=== PATIENT | male | born 1990 | race Caucasian/White ===

== ENCOUNTER 2020-02-18 09:58 | Outpatient (CLI) | payer OTHER, SELFPAY ==
--- NOTE | ~2020-02-18 | MR_ITS ---
EXAMINATION: MR brain/brain stem wo con DATE: 02/18/2020 11:04 INDICATION: Epilepsy, unspecified, not intractable, without status epilepticus. TECHNIQUE: Magnetic resonance imaging (MRI) of the brain and brainstem was performed without intraven ous contrast. Sequences included sagittal and axial T1-weighted FSE, axial diffusion-weighted FS EPI, axial T2*-weighted GRE, axial T2-weighted FLAIR Propeller, axial T2-weighted Propeller, coronal T2-w eighted FLAIR, and coronal T1-weighted 3D FSPGR. Apparent diffusion coefficient (ADC) maps were creat ed. COMPARISON: None. FINDINGS: The hippocampi are normal and symmetric. There is no intracranial hemorrhage, acute infarct ion, or abnormal intracranial mass lesion. The ventricles are normal in size. The paranasal sinuses a re clear. The orbits are normal. The mastoid air cells are normal. IMPRESSION: 1. Normal brain. Reviewed, dictated and finalized at location A. IMPRESSION: 1. Normal brain.
[2020-02-18 11:56] LABS: Basophils Percent Auto 0.2 % (0.2-1.2); Eosinophils Absolute Auto 0.1 K/mm3 (0-0.3); Eosinophils Percent Auto 0.9 % (0-4.4); Hematocrit 43.8 % (42.0-52.0); Hemoglobin 14.5 g/dL (14.0-18.0); Immature Granulocyte Absolute 0.03 K/mm3 (0.00-0.031); Immature Granulocyte Percent A 0.3 % (0-0.5); Lymphocytes Absolute Auto 2.21 K/mm3 (0.9-3.2); Lymphocytes Percent Auto 25.2 % (18.3-44.2); Mean Corpuscular HGB Conc 33.1 g/dl (32-36); Mean Corpuscular Hemoglobin 28.3 pg (26-34); Mean Corpuscular Volume 85.5 fl (80-100); Mean Platelet Volume 8.7 fl (7.4-10.4); Monocytes Absolute Auto 0.8 K/mm3 (0.1-0.6); Monocytes Percent Auto 9.4 % (2.6-8.5); Neutrophils Absolute Auto 5.6 K/mm3 (1.3-6.7); Platelet Count Result 335 k/mm3 (150-375); Red Blood Count 5.12 M/mm3 (4.6-6.20); Red Cell Distribution Width 13.4 % (11.5-14.5); White Blood Count 8.8 K/mm3 (4.5-10.0)
[2020-02-18 12:16] LABS: Alanine Aminotransferase 38 U/L (4-50); Albumin Level 4.5 g/dL (3.5-5.1); Alkaline Phosphatase 104 U/L (38-126); Aspartate Amino Transferase 34 U/L (17-59); Bilirubin,Total 0.3 mg/dL (0.2-1.3); Blood Urea Nitrogen 11 mg/dL (9-20); Calcium 9.4 mg/dL (8.4-10.2); Carbon Dioxide 29 mmol/L (22-30); Chloride 101 mmol/L (98-107); Estimated Glomerular Filt Rate > 60; Glucose 98 mg/dL (75-110); Potassium 4.7 mmol/L (3.4-5.0); Sodium 138 mmol/L (137-145)
== END 2020-02-18 09:59 | disposition home or self-care (01) ==
PROVIDERS: PCP Family Medicine; Visit Provider Family Medicine
DX: G40.909 Epilepsy, unspecified, not intractable, without status epilepticus (principal)
CPT/HCPCS: 36415; 70551; 80053; 84443; 85025

== ENCOUNTER 2020-03-19 13:43 | Outpatient (CLI) | payer OTHER, SELFPAY | END 2020-03-19 13:44 | disposition home or self-care (01) | PROVIDERS: PCP Family Medicine; Visit Provider Surgery | DX: K43.0 Incisional hernia with obstruction, without gangrene (principal); Z01.812 Encounter for preprocedural laboratory examination | CPT/HCPCS: 36415; 86850; 86900; 86901 ==

== ENCOUNTER 2020-03-20 00:14 | Outpatient (CLI) | payer OTHER, SELFPAY ==
[2020-03-20 17:48] LABS: SARS-CoV-2 RNA PCR Negative
== END 2020-03-20 00:15 | disposition home or self-care (01) ==
LOC: ANHCOVIDDT 00:14
PROVIDERS: PCP Family Medicine; Visit Provider Surgery
DX: Z01.812 Encounter for preprocedural laboratory examination (principal); Z20.828 Contact with and (suspected) exposure to other viral communicable diseases
CPT/HCPCS: 87635; C9803; U0003

== ENCOUNTER 2020-03-23 11:45 | Inpatient (IN) | payer OTHER, SELFPAY ==
[2020-03-10 11:56] VITALS: BMI 35.9
--- NOTE | 2020-03-20 13:49 | WPDANESEPPF ---
Anes - Initial Pre Proc Eval Procedure: Operation Date: 03/23/20 07:30 Proposed Procedures p Open Retrorectus Incisional Hernia Repair With Mesh, Bilateral Component Separation - John Zuniga DO Date/Time: 03/20/20 13:49 Surgeon: John Zuniga DO Pre Op Diagnosis: Incarcerated Incisional Hernia Patient Data Age: 29 Gender: M Height: 5 ft 10 in Weight: 113.4 kg Allergies Allergy/AdvReac Type Severity Reaction Status Date / Time Penicillins Allergy Unknown Unknown Verified 03/10/20 11:57 REACTION trimethoprim Allergy Unknown unknown Verified 12/13/19 08:29 sulfamethoxazole Allergy Unknown Verified 03/10/20 11:57 [From Bactrim] Home Medications Medication Instructions Recorded Confirmed Type levetiracetam 500 mg tablet 500 mg PO Q12H #60 tablet 02/18/20 03/10/20 Rx buspirone 10 mg tablet 10 mg PO BID #60 tablet 03/09/20 03/10/20 Rx hydrochlorothiazide 25 mg tablet 25 mg PO DAILY #90 tablet 03/09/20 03/10/20 Rx alprazolam 0.5 mg tablet 0.5 mg PO BID PRN #20 tablet 03/18/20 Rx PMFSH Social History Social History Smoking status: Never smoker Second hand tobacco smoke exposure: No Alcohol intake: current 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 Questions were solicited and answers provided to the satisfaction of the patient/family/POA.
[2020-03-23] VITALS (13 sets, daily range): BP systolic 110–153; BP diastolic 64–91; PULSE 66–99; RESP 12–20; TEMP 36.1–37.2; O2SAT 94–100
[2020-03-23] MEDS: LACTATED RINGERS 1,000 ML 30 ML IV CONT ×2 (06:30→10:09)
[2020-03-23] MEDS: IBUPROFEN IV 800 MG/200 ML 800 MG/200 ML BAG 400 MG IVPB (06:35)
--- NOTE | 2020-03-23 06:53 | WPDANESEPPF ---
Anes - Initial Pre Proc Eval Procedure: Operation Date: 03/23/20 07:30 Proposed Procedures p Open Retrorectus Incisional Hernia Repair With Mesh, Bilateral Component Separation - John Zuniga DO Date/Time: 03/23/20 06:53 Surgeon: John Zuniga DO Pre Op Diagnosis: Incarcerated Incisional Hernia Patient Data Age: 29 Gender: M Height: 1.78 m Weight: 113.3 kg Allergies Allergy/AdvReac Type Severity Reaction Status Date / Time Penicillins Allergy Unknown Unknown Verified 03/10/20 11:57 REACTION trimethoprim Allergy Unknown unknown Verified 12/13/19 08:29 sulfamethoxazole Allergy Unknown Verified 03/10/20 11:57 [From Bactrim] Home Medications Medication Instructions Recorded Confirmed Type levetiracetam 500 mg tablet 500 mg PO Q12H #60 tablet 02/18/20 03/23/20 Rx buspirone 10 mg tablet 10 mg PO BID #60 tablet 03/09/20 03/23/20 Rx hydrochlorothiazide 25 mg tablet 25 mg PO DAILY #90 tablet 03/09/20 03/23/20 Rx alprazolam 0.5 mg tablet 0.5 mg PO BID PRN #20 tablet 03/18/20 Rx Patient hx anesthesia problems: none Family hx anesthesia problems: none PMFSH Social History Social History Smoking status: Never smoker Second hand tobacco smoke exposure: No Alcohol intake: current 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 Questions were solicited and answers provided to the satisfaction of the patient/family/POA.
--- NOTE | 2020-03-23 06:53 | WPDANESEPN ---
Anes - Epidural Procedure Note Date/Time: 03/23/20 06:53 Consent: I have discussed with the patient/family/POA, the placement of an epidural catheter and the use of epidural narcotic/local anesthetic for labor analgesia and/or postoperative pain management, including associated potential risks, benefits, complications and side effects. I have discussed alternative methods of labor analgesia and/or postoperative pain management. The patient/family/POA, understand(s) and wish(es) to proceed with epidural narcotic/local anesthetic for labor analgesia and/or postoperative pain management. Time-Out: A pre-procedural Time-Out was completed immediately before starting the procedure and confirmed: Patient Identification, Site, Procedure, Patient Position and the Availability of Requisite Equipment. Epidural Insertion Note Patient position: sitting Skin prep: chlorhexidine Needle: 18g Tuohy-Schliff Catheter: 20g Unstyleted Technique: Loss of resistance. Level of insertion: T9-10 Catheter skin michael (cm): 12 Length in epidural space (cm): 6 Skin anesthesia: lidocaine 1% Test dose: 1.5% Lidocaine with [id number] Epi Time of test dose: 07:26 Observations: tolerated well Complications: none
--- NOTE | 2020-03-23 06:55 | SUR.PREOP ---
0672- UPDATED PT GIRLFRIENDSALMA BY PHONE ON PT STATUS.
--- NOTE | 2020-03-23 07:15 | PM.IMHP ---
H&P: HPI History of Present Illness Chief complaint: Incarcerated Incisional Hernia Narrative: Devon Vallejo is a 29 year old male who presents with an incisional hernia. He has hx of open appendectomy 12 years ago and has a large incisional hernia. Review of Systems Review of Systems: All systems reviewed & are unremarkable except as noted in HPI and below Constitutional: Constitutional: Denies chills, Denies fever(s), Denies headache(s) and Denies weight loss Eyes: Eyes: Denies change in vision ENT: Denies dizziness, Denies headache(s), Denies neck mass and Denies throat swelling Cardiovascular: Cardiovascular: Denies chest pain, Denies lightheadedness and Denies dyspnea Respiratory: Respiratory: Denies cough, Denies dyspnea and Denies wheezing Gastrointestinal: Gastrointestinal: Denies abdominal pain, Denies change in bowel habits, Denies nausea and Denies vomiting Genitourinary: Genitourinary: Denies hematuria and Denies dysuria Musculoskeletal: Musculoskeletal: Reports as per HPI Integumentary/Breasts: Skin/Breast: Reports as per HPI Neurologic: Denies dizziness and Denies headache(s) Allergic/Immunologic: Allergic/Immunologic: Denies throat swelling and Denies wheezing PMFSH Past Medical History Medical History Apnea Essential (primary) hypertension Seizure disorder Surgical History Surgical History History of appendectomy 2007 Family History Family History Other Carcinoma of colon Diabetes mellitus Social History Social History Smoking status: Never smoker Second hand tobacco smoke exposure: No Alcohol intake: current 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 Meds Home Medications and Allergies Home Medications Medication Instructions Recorded Confirmed Type levetiracetam 500 mg tablet 500 mg PO Q12H #60 tablet 02/18/20 03/23/20 Rx buspirone 10 mg tablet 10 mg PO BID #60 tablet 03/09/20 03/23/20 Rx hydrochlorothiazide 25 mg tablet 25 mg PO DAILY #90 tablet 03/09/20 03/23/20 Rx alprazolam 0.5 mg tablet 0.5 mg PO BID PRN #20 tablet 03/18/20 Rx Allergies Allergy/AdvReac Type Severity Reaction Status Date / Time Penicillins Allergy Unknown Unknown Verified 03/10/20 11:57 REACTION trimethoprim Allergy Unknown unknown Verified 12/13/19 08:29 sulfamethoxazole Allergy Unknown Verified 03/10/20 11:57 [From Bactrim] Vital Signs Vital Signs - 24 hr 03/23/20 07:05 Temperature 37.1 C Pulse Rate 97 Respiratory Rate 20 Blood Pressure 138/91 H Pulse Oximetry 98 Exam Const: General: no acute distress and alert Orientation/consciousness: patient oriented x3 HENMT: Head: normocephalic and atraumatic Ears: hearing grossly normal bilaterally General nose exam: Normal nares present Mouth: Yes Normal oral and palatal mucosa present Eyes: Periorbital: periorbital findings normal Sclera: sclerae normal EOM: EOMs intact bilaterally Neck: Neck: normal visual inspection, no lymphadenopathy and trachea midline Chest: Chest palpation & inspection: normal inspection of the chest Resp: Effort & Inspection: normal respiratory effort Auscultation: clear to auscultation bilaterally Cardio: Jugular venous distension: no JVD Rate: regular rate Rhythm: regular rhythm Heart sounds: S1 normal heart sound present and S2 normal heart sound present Peripheral pulses: Peripheral pulses 2+ throughout GI: Inspection: normal to inspection and scar (midline) GI Palp: Yes Soft to palpation, No Tenderness to palpation present (GI), No Guarding due to palpation present (GI), Yes Hernia present (incisional hernia above umbilicus) and No Rebound tenderness present Percussion: Yes normal to percussion Auscultation: normal bowel sounds G
[2020-03-23] MEDS: MIDAZOLAM HCL 2 MG/2 ML VIAL IV PUSH (07:20)
[2020-03-23] MEDS: ceFAZolin 2 GM/D5W 50 ML 2 GM/50 ML BAG IVPB ×3 (07:32→22:35)
--- NOTE | 2020-03-23 10:08 | PM.PROC ---
Procedure Note - Detailed Date of procedure: 03/23/20 Pre-op diagnosis: Incarcerated Incisional Hernia Post-op diagnosis: same Procedure performed: 1. Open Retrorectus Incarcerated Incisional Hernia Repair with Mesh 2. Bilateral Myofascial Release (4cm on Left and 2cm on Right) Description of procedure: Procedure as well as risks, benefits, and alternatives were discussed with the patient. Written consent was obtained and placed in chart prior to procedure. Patient was brought back to surgical suite. He was placed supine on operating table. Time-out was done to confirm patient and procedure. He was then intubated by the Anesthesia Department. His abdomen was prepped and draped in sterile fashion using chlorhexidine prep. A 20 cm vertical midline incision was made using a 10 blade scalpel. Electrocautery was used for hemostasis and for dissection down through Re's fascia. The linea alba was identified inferior to the umbilicus and was incised using electrocautery. I entered into the peritoneal cavity using electrocautery. A carefully swept with my finger to ensure that no bowel was adherent up to the lower midline fascia, and the midline fascia was opened using electrocautery. I then extended this incision up to the hernia defect. There was some bowel and omentum going up into the hernia defect, and this was carefully protected while the fascia was incised. The herniated contents were then carefully reduced using blunt dissection and electrocautery. Once the omentum and bowel was reduced from the hernia defect I was able to identify the entire circumference of the hernia defect. The fascia was then incised for about 2 cm cephalad to the hernia defect as well using electrocautery. The hernia defect measured 8 cm vertically by 6 cm wide. The fascia would not come together without significant tension. The retro rectus plane was then created on both sides using electrocautery along the posterior rectus sheath. The posterior rectus sheath was then carefully from the rectus muscle out laterally towards the linea semilunaris. Care was taken to avoid the perforating neurovascular bundles. Once the retro rectus plane was created on both sides, the plane of dissection was created inferiorly all the way down to the space of Retzius and cephalad all the way to the subxiphoid region. The fascial edges were then inspected and they appeared to come together in midline but were under some tension, therefore decision was made to perform a transversus abdominis release along the left side. The transversus abdominous plane was entered along the left upper quadrant about 1 cm medial to the linea semilunaris using electrocautery. The transversus abdominus muscle was carefully isolated using a right angle and was incised with electrocautery. This was extended cephalad to about to the level of the costal margin and was also extended inferiorly all the way down into the left lower quadrant. Once this was completed, I was able to obtain adequate mobilization of the fascia medially to perform our midline closure. Care was taken to not cause any tears in the peritoneum throughout this dissection. The posterior rectus sheath now came together in the midline without any tension. One final inspection was made around the abdominal cavity and no other abnormalities were noted. The posterior rectus sheath was then closed using 0 PDS running sutures starting from each end and meeting in the middle. I then measured the retro rectus space for our mesh placement. A piece of mesh was cut to 12 cm x 30 cm. This was anchored at the subxiphoid region using a #1 Vicryl U-stitch. The mesh was then placed within the retro rectus space and extended all the way down into the space of re-to this behind the pubic bone. The mesh was carefully laid flat throughout the retrorectus space and appeared to be in proper position. A 19 round Skyler drain was placed within the retro rectus space
[2020-03-23] MEDS: HYDROMORPHONE HCL 1 MG/ML INJ 0.25 MG IV PUSH ×2 (11:05→11:11)
--- NOTE | 2020-03-23 11:13 | SUR.PHASEI ---
1100 SPOKE WITH SIG. SHERYL MARSH PER PHONE- UPDATE & ROOM 319 GIVEN.
--- NOTE | 2020-03-23 11:31 | PC.NURSE ---
This patient, Devon Vallejo, was admitted to -. Patient/family oriented to hospital policies and general routines including ID bracelet, bed and alarms, visiting hours, pain management, procedures, bathroom and other care routines, personal items, smoking policy, room service/diet, and visiting hours. Valuables list has been completed. Information on how to activate the Rapid Response Team has been discussed. Patient/Family are encouraged to report perceived risks to care and to ask questions if they do not understand what they are told or what they should do.
[2020-03-23] MEDS: MORPHINE SULFATE 2 MG/ML INJ IV PUSH (12:27)
--- NOTE | 2020-03-23 13:55 | PC.NURSE ---
Anesthesiologist staff came into room and increased epidural pump rate to 12ml/hr.
[2020-03-23] MEDS: busPIRone HCL 10 MG TABLET PO (16:07)
[2020-03-23] MEDS: ONDANSETRON INJ 4 MG/2 ML VIAL IV PUSH (16:11)
[2020-03-23] MEDS: levETIRAcetam 500 MG TABLET PO (20:55)
[2020-03-24 02:00] VITALS: BP 122/68; PULSE 112; RESP 20; TEMP 37.1; O2SAT 94
[2020-03-24 06:00] VITALS: BP 132/68; PULSE 110; RESP 20; TEMP 36.6; O2SAT 93
[2020-03-24 07:36] LABS: Hematocrit 40.5 % (42.0-52.0); Hemoglobin 13.4 g/dL (14.0-18.0); Mean Corpuscular HGB Conc 33.1 g/dl (32-36); Mean Corpuscular Hemoglobin 28.3 pg (26-34); Mean Corpuscular Volume 85.4 fl (80-100); Mean Platelet Volume 8.9 fl (7.4-10.4); Platelet Count Result 313 k/mm3 (150-375); Red Blood Count 4.74 M/mm3 (4.6-6.20); Red Cell Distribution Width 13.3 % (11.5-14.5); White Blood Count 11.6 K/mm3 (4.5-10.0)
[2020-03-24 07:49] LABS: Blood Urea Nitrogen 14 mg/dL (9-20); Carbon Dioxide 29 mmol/L (22-30); Chloride 97 mmol/L (98-107); Estimated CRCL calculation 134 ml/min; Estimated Glomerular Filt Rate > 60; Glucose 104 mg/dL (75-110); Potassium 4.6 mmol/L (3.4-5.0); Sodium 132 mmol/L (137-145)
[2020-03-24] MEDS: ceFAZolin 2 GM/D5W 50 ML 2 GM/50 ML BAG IVPB (08:32)
[2020-03-24] MEDS: busPIRone HCL 10 MG TABLET PO ×2 (08:33→17:11)
[2020-03-24] MEDS: levETIRAcetam 500 MG TABLET PO ×2 (08:33→20:53)
[2020-03-24] MEDS: hydroCHLOROthiazide 25 MG TABLET PO (08:33)
[2020-03-24] MEDS: polyethylene glycoL 3350 17 GM POWD.PACK PO (08:37)
[2020-03-24 09:53] VITALS: O2SAT 93
[2020-03-24 10:00] VITALS: BP 127/81; PULSE 95; RESP 16; TEMP 36.8; O2SAT 95
--- NOTE | 2020-03-24 10:49 | WPDANESPN ---
Anes - Prog Note Post-Op Date/Time: 03/24/20 10:49 Cardiovascular status: normal Respiratory status: normal Airway patency: baseline Mental status: baseline Post-Op hydration status: normal Vital Signs: Last Vital Signs Temp 36.8 C 03/24/20 10:00 Pulse 95 03/24/20 10:00 Resp 16 03/24/20 10:00 BP 127/81 03/24/20 10:00 Pulse Ox 95 03/24/20 10:00 I/O: Intake & Output 03/23/20 03/24/20 03/24/20 23:59 07:59 15:59 Intake Total 750 250 100 Output Total 90 370 Balance 660 -120 100 Laboratory Tests 03/24/20 07:24 03/24/20 07:24 03/24/20 03/24/20 07:24 07:24 WBC 11.6 H RBC 4.74 Hgb 13.4 L Hct 40.5 L MCV 85.4 MCH 28.3 MCHC 33.1 RDW 13.3 Plt Count 313 MPV 8.9 Sodium 132 L Potassium 4.6 Chloride 97 L Carbon Dioxide 29 BUN 14 Creatinine 0.90 Estim Creat Clear Calc 134 Estimated GFR > 60 Glucose 104 Calcium 9.0 Post-procedural complaints: none Patient Feedback: Patient satisfied with anesthetic care. Other Findings: epidural running at 12cc/hr, pt states pain a 4/10
[2020-03-24] MEDS: IBUPROFEN 600 MG TABLET PO (13:21)
[2020-03-24 14:00] VITALS: BP 140/91; PULSE 76; RESP 16; TEMP 36.9; O2SAT 95
[2020-03-24 21:54] VITALS: BP 123/78; PULSE 99; RESP 16; TEMP 37.1; O2SAT 94
[2020-03-25 02:00] VITALS: BP 127/79; PULSE 88; RESP 18; TEMP 37; O2SAT 95
[2020-03-25 06:00] VITALS: BP 132/85; PULSE 99; RESP 18; TEMP 36.7; O2SAT 96
--- NOTE | 2020-03-25 07:31 | PM.PNGS ---
Progress Note: A&P Assessment and Plan (1) Incarcerated incisional hernia: Code(s): K43.0 - Incisional hernia with obstruction, without gangrene Status: Acute Assessment and Plan: Healing well. Bowels not moving yet but started MiraLax yesterday. Ambulating well. If pain can be controlled with oral pain meds, will plan to discharge later this afternoon GERA drain output decreasing, remove drain today (2) Postoperative pain: Code(s): G89.18 - Other acute postprocedural pain Status: Acute Assessment and Plan: Pain managed well with epidural thus far. Now 2 days out from surgery. Will remove epidural today and transition to oral pain meds. (3) Apnea: Code(s): R06.81 - Apnea, not elsewhere classified Status: Acute (4) Seizure disorder: Code(s): G40.909 - Epilepsy, unspecified, not intractable, without status epilepticus Status: Acute (5) Essential (primary) hypertension: Code(s): I10 - Essential (primary) hypertension Status: Acute Subjective Subjective Date/Time Seen: 03/25/20 07:31 Post Op day: 2 Patient reports: feels better, pain is less, tolerating a regular diet and no bowel movement Interval history: Patient ambulating in halls without much difficulty. No fevers. Wants to try to go home today. Exam GI: Inspection: incision (healing, dry) and other (GERA minimal serosanguinous) GI Palp: Yes Soft to palpation Auscultation: normal bowel sounds Objective Data Vital Signs Vital Signs: Vital Signs - 24 hr 03/24/20 09:53 03/24/20 10:00 03/24/20 14:00 Temperature 36.8 C 36.9 C Pulse Rate 95 76 Respiratory Rate 16 16 Blood Pressure 127/81 140/91 H Pulse Oximetry 93 95 95 03/24/20 21:54 03/25/20 02:00 03/25/20 06:00 Temperature 37.1 C 37.0 C 36.7 C Pulse Rate 99 88 99 Respiratory Rate 16 18 18 Blood Pressure 123/78 127/79 132/85 Pulse Oximetry 94 95 96 Intake/Output Intake/Output: Intake & Output 03/22/20 03/23/20 03/24/20 03/25/20 23:59 23:59 23:59 23:59 Intake Total 1000 1100 540 Output Total 361 928 3415 Balance 890 650 -970 Meds/Results Medications: Active Medications Generic Name Dose Route Start Last Admin Trade Name Freq PRN Reason Stop Dose Admin Hydrocodone Bitart/Acetaminophen 1 tab 03/25/20 07:28 [place] 5-325 Mg PO Q4H PRN Pain Rated 4-6 Hydrocodone Bitart/Acetaminophen 1 tab 03/25/20 07:28 [place] 10-325 Mg PO Q4H PRN Pain Rated 7-10 Buspirone HCl 10 mg 03/23/20 17:00 03/24/20 17:11 Buspar PO 10 mg BID HOLLY Administration Diphenhydramine HCl 12.5 mg 03/23/20 07:34 Benadryl Inj IV PUSH Q4H PRN Itching Enoxaparin Sodium 40 mg 03/24/20 09:00 03/24/20 10:39 Lovenox SUB-Q Not Given DAILY HOLLY Hydrochlorothiazide 25 mg 03/24/20 09:00 03/24/20 08:33 Hydrochlorothiazide PO 25 mg DAILY HOLLY Administration Ropivacaine/Fentanyl/NS 100 mls @ 12 mls/hr 03/23/20 08:05 03/25/20 06:30 Fentanyl 2 Mcg/Ml-Ropivacaine 0.2% Ns 100 Ml EPIDURAL 12 mls/hr .Q8H20M HOLLY Infusion Ibuprofen 600 mg 03/25/20 07:29 Motrin PO Q6H PRN Pain Rated 1-3 Levetiracetam 500 mg 03/23/20 21:00 03/24/20 20:53 Keppra Tablet PO 500 mg Q12HR HOLLY Administration Morphine Sulfate 2 mg 03/23/20 07:34 03/23/20 12:27 Morphine Sulfate Inj IV PUSH 2 mg ONCE PRN Administration Pain Rated 7 Or Greater Naloxone HCl 0.1 mg 03/23/20 07:34 Narcan IV PUSH Q2M PRN Sedation reversal Ondansetron HCl 4 mg 03/23/20 07:34 03/23/20 16:11 Zofran Inj IV PUSH 4 mg Q6H PRN Administration Nausea And Vomiting Polyethylene Glycol 17 gm 03/24/20 09:00 03/24/20 08:37 Miralax PO 17 gm QAM HOLLY Administration Labs Labs: Laboratory Results - last 24 hr 03/24/20 03/24/20 07:24 07:24 WBC 11.6 H RBC 4.74 Hgb 13.4 L Hct 40.5 L MCV 85.4 MCH 28.3 MCHC 33.1 R
[2020-03-25 10:00] VITALS: BP 134/86; PULSE 104; RESP 16; TEMP 36.9; O2SAT 97
[2020-03-25] MEDS: hydroCHLOROthiazide 25 MG TABLET PO (10:35)
[2020-03-25] MEDS: levETIRAcetam 500 MG TABLET PO (10:36)
[2020-03-25] MEDS: busPIRone HCL 10 MG TABLET PO (10:36)
[2020-03-25] MEDS: polyethylene glycoL 3350 17 GM POWD.PACK PO (10:36)
[2020-03-25] MEDS: IBUPROFEN 600 MG TABLET PO (13:38)
[2020-03-25 14:00] VITALS: BP 130/90; PULSE 94; RESP 16; TEMP 36.6; O2SAT 98
--- NOTE | 2020-03-25 15:04 | PM.DS ---
DS: Admitting Diagnosis Admitting Diagnosis Admitting Diagnosis: Incisional hernia with obstruction, without gangrene DS: Discharge Diagnosis Discharge Diagnosis (1) Incarcerated incisional hernia: Code(s): K43.0 - Incisional hernia with obstruction, without gangrene Status: Acute (2) Essential (primary) hypertension: Code(s): I10 - Essential (primary) hypertension Status: Acute (3) Seizure disorder: Code(s): G40.909 - Epilepsy, unspecified, not intractable, without status epilepticus Status: Acute (4) Apnea: Code(s): R06.81 - Apnea, not elsewhere classified Status: Acute (5) Postoperative pain: Code(s): G89.18 - Other acute postprocedural pain Status: Acute DS: Summary Hospital Course Reason for hospitalization: Postoperative pain control status post open retro rectus incisional hernia repair with mesh with bilateral component separation Hospital Course: This is a 29-year-old man who presented with a large incisional hernia in his midline abdomen just above his umbilicus. He has a prior history of open appendectomy and subsequently developed a hernia within the scar measuring approximately 6 cm x 8 cm. Discussions were made with the patient about treatment options, and patient elected to proceed with incisional hernia repair. Epidural was placed at the time of surgery for postoperative pain control. He was then admitted to the hospital for further recovery. His pain was adequately controlled with the epidural managed at a steady rate. Any time the epidural was turned down, he did have increased pain. His activity was slowly advanced as tolerated. On postop day 1 he was able to get up to a chair and ambulate minimally. He was tolerating a regular diet. On postop day 2 he was ambulating with much less difficulty and was doing very well with pain control. His epidural was removed and he was started on oral pain meds. He had a drain placed at the time of surgery, but this was draining very minimal at this point. The drain was removed on postop day 2 as well. He was tolerating his diet and activity and remained hemodynamically stable, therefore he was discharged on postop day 2. Status at Discharge Functional status at discharge: independent ambulation Overall status at discharge: patient is progressing back to baseline Time Spent with Patient Time attestation: Total time spent providing and/or coordinating discharge services: Time spent: Less than 30 minutes Exam Const: General: no acute distress Resp: Auscultation: clear to auscultation bilaterally Cardio: Rate: regular rate Rhythm: regular rhythm GI: GI Palp: Yes Soft to palpation and Yes Tenderness to palpation present (GI) (Incisional) Other: Incision healing well with guero intact. Drain with minimal serosanguineous fluid. Psych: Mental Status: mental status grossly normal Discharge Plan Discharge Attending physician on discharge: John Benjamin Discharging Clinician: John Benjamin Patient Disposition: Home, Self-Care Activity: may shower and other - see discharge instructions Diet: as tolerated Wound Care Instructions: follow printed instructions Discharge Instructions: DISCHARGE INSTRUCTION SHEET FOR HERNIA, GALLBLADDER AND APPENDIX SURGERIES DR. BENJAMIN PATIENT TO TAKE HOME 1. May shower in 24 hours, no soaking in bath x 2weeks. 2. Call office for: Wound increasingly painful or bleeding Vomiting Fever of greater than 101 degrees 3. If no bowel movement for three days, take 1 oz. (30 ml) Milk of Magnesia or MiraLax 17g 1 to 2 times daily. 4. No heavy lifting > 10-15 pounds x6 weeks for hernia repairs and 2 weeks for laparoscopic cholecystectomy or appendectomy. 5. No driving for 3 days or while taking narcotic pain medications. 6. Ice to surgical site for 48 hours (30 min on, then 30 min off).
== END 2020-03-25 16:30 | disposition home or self-care (01) | DRG 355 ==
LOC: ANH3MEDSUR 11:47
PROVIDERS: Admitting Provider Surgery; PCP Family Medicine; Visit Provider Surgery
PROC: 0WQF0ZZ Repair Abdominal Wall, Open Approach (ICD-10-PCS; principal; 2020-03-23 07:30)
DX: K43.0 Incisional hernia with obstruction, without gangrene (principal); R06.81 Apnea, not elsewhere classified; G89.18 Other acute postprocedural pain; I10 Essential (primary) hypertension; G40.909 Epilepsy, unspecified, not intractable, without status epilepticus; Z98.890 Other specified postprocedural states; Z79.899 Other long term (current) drug therapy; Z88.0 Allergy status to penicillin; Z88.2 Allergy status to sulfonamides; Z88.3 Allergy status to other anti-infective agents
CPT/HCPCS: 36415; 80048; 85027; A9270; C1781; C9290; J0330; J0690; J1170; J1741; J2001; J2250; J2270; J2405; J2704; J3010; J7120

== ENCOUNTER 2020-04-28 12:44 | Outpatient (CLI) | payer OTHER, SELFPAY ==
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
== END 2020-04-28 12:45 | disposition home or self-care (01) ==
PROVIDERS: PCP Family Medicine; Visit Provider Psychiatry & Neurology Neurology
DX: R56.9 Unspecified convulsions (principal)
CPT/HCPCS: 95816

== ENCOUNTER 2021-07-30 09:00 | Outpatient (CLI) | payer OTHER, SELFPAY ==
--- NOTE | ~2021-07-30 | XR_ITS ---
XR lumbar spine 6V w bending 07/30/2021 09:37 Indication: Low back pain Procedure: 7 views of the lumbar spine including flexion and extension views Comparison: No prior studies for comparison. Findings: Vertebral body heights are maintained. No fracture, subluxation or dislocation. No evidence for spondylolisthesis. No significant disc narrowing. Impression: 1: No significant abnormality of the lumbar spine. Reviewed, dictated and finalized at location D. Impression: 1: No significant abnormality of the lumbar spine.
== END 2021-07-30 09:01 | disposition home or self-care (01) ==
PROVIDERS: PCP Family Medicine; Visit Provider Family Medicine
DX: M54.50 Low back pain, unspecified (principal)
CPT/HCPCS: 72114

== ENCOUNTER 2022-07-22 08:46 | Outpatient (CLI) | payer OTHER, SELFPAY ==
--- NOTE | ~2022-07-22 | US_ITS ---
EXAMINATION: US abdomen complete DATE: 07/22/2022 09:28 INDICATION: Right upper quadrant abdominal pain. TECHNIQUE: Multiple grayscale and Doppler ultrasound images of the abdomen were obtained. COMPARISON: CT abdomen and pelvis 01/24/2019 FINDINGS: The visualized portions of the head and body of the pancreas are normal. Abdominal aorta is normal in caliber. Inferior vena cava is normal. The liver is normal without focal lesion. There is normal flow in main portal vein. The gallbladder is normal in size. No gallstones or gallbladder wall thickening. There is no significant Patino's sign. The common duct is normal and measures 5 mm. The kidneys are normal in size. The spleen is normal in size. IMPRESSION: 1. Normal complete abdomen ultrasound. Reviewed, dictated and finalized at location A.
== END 2022-07-22 08:47 | disposition home or self-care (01) ==
LOC: ANHIMG 08:49
PROVIDERS: PCP Family Medicine; Visit Provider Physician Assistant Medical
DX: R10.11 Right upper quadrant pain (principal)
CPT/HCPCS: 76700

== ENCOUNTER 2022-07-27 10:54 | Outpatient (CLI) | payer OTHER, SELFPAY ==
--- NOTE | ~2022-07-27 | NM_ITS ---
EXAMINATION: NM hepatobiliary wo pharm DATE: 07/27/2022 14:16 INDICATION: Right upper quadrant abdominal pain. COMPARISON: Ultrasound 07/22/2022 TECHNIQUE: 5 mCi Tc-99m mebrofenin (Choletec) was administered intravenously. Scintigraphic images o f the abdomen were obtained for one hour. Then, the patient drank 8 oz Ensure, and imaging was contin ued for 60 minutes. FINDINGS: There is normal clearance of radiotracer from the blood pool. There is homogeneous tracer u ptake by the liver. Activity progresses to the bowel and gallbladder. Gallbladder ejection fraction (GBEF) was 25%. Note that with this technique, normal GBEF >= 33%. IMPRESSION: 1. Low gallbladder ejection fraction, consistent with gallbladder dysfunction and/or chronic cholecy stitis. Reviewed, dictated and finalized at location B. IMPRESSION: 1. Low gallbladder ejection fraction, consistent with gallbladder dysfunction and/or chronic cholecystitis.
== END 2022-07-27 10:55 | disposition home or self-care (01) ==
PROVIDERS: PCP Family Medicine; Visit Provider Physician Assistant Medical
DX: R10.11 Right upper quadrant pain (principal)
CPT/HCPCS: 78226; A9537

== ENCOUNTER 2024-03-13 08:45 | Outpatient (CLI) | payer OTHER, SELFPAY ==
--- NOTE | ~2024-03-13 | US_ITS ---
EXAMINATION: US right upper quadrant DATE: 03/13/2024 09:20 INDICATION: Right upper quadrant abdominal pain. TECHNIQUE: Multiple grayscale and Doppler ultrasound images of the abdomen were obtained. COMPARISON: Ultrasound 07/22/2022, CT abdomen and pelvis 01/24/2019 FINDINGS: The visualized portions of the head, body, and tail of the pancreas are normal. The liver i s normal without focal lesion. There is normal flow in main portal vein. The gallbladder is normal in size. No gallstones or gallbladder wall thickening. There is no sonographic Patino's sign. The commo n duct is normal and measures 4 mm. IMPRESSION: 1. Normal right upper quadrant ultrasound. Reviewed, dictated and finalized at location A.
== END 2024-03-13 08:46 | disposition home or self-care (01) ==
PROVIDERS: PCP Family Medicine; Visit Provider Physician Assistant Medical
DX: K82.8 Other specified diseases of gallbladder (principal)
CPT/HCPCS: 76705

== ENCOUNTER 2024-03-25 07:43 | Outpatient (CLI) | payer OTHER, SELFPAY ==
--- NOTE | ~2024-03-25 | NM_ITS ---
EXAMINATION: NM hepatobiliary wo pharm DATE: 03/25/2024 10:03 INDICATION: Other specified disease of gallbladder COMPARISON: None. TECHNIQUE: I mCi Tc-99m mebrofenin (Choletec) was administered intravenously. Scintigraphic images o f the abdomen were obtained for one hour. At the 1 hour time point, the patient drank 8 oz Ensure, an d imaging was continued for 60 minutes. Gallbladder ejection fraction was calculated by the technolog ist. FINDINGS: There is normal clearance of radiotracer from the blood pool. There is homogeneous tracer u ptake by the liver. Activity progresses to the bowel and gallbladder. The gallbladder ejection fract ion (GBEF) is 33%. Note that with this technique, normal GBEF >= 33%. IMPRESSION: 1. Gallbladder ejection fraction is at the lowest limit of normal. This could be normal but could a lso be seen with gallbladder dysfunction or chronic cholecystitis in the appropriate clinical setting . Reviewed, dictated and finalized at location A. IMPRESSION: 1. Gallbladder ejection fraction is at the lowest limit of normal. This could be normal but could also be seen with gallbladder dysfunction or chronic leah cystitis in the appropriate clinical setting.
== END 2024-03-25 07:44 | disposition home or self-care (01) ==
PROVIDERS: PCP Family Medicine; Visit Provider Physician Assistant Medical
DX: K82.8 Other specified diseases of gallbladder (principal); R10.11 Right upper quadrant pain
CPT/HCPCS: 78226; A9537

== ENCOUNTER 2024-10-01 07:41 | Outpatient (CLI) | payer OTHER, SELFPAY ==
--- NOTE | ~2024-10-01 | US_ITS ---
EXAMINATION: US venous doppler [facility] DATE: 10/01/2024 08:47 INDICATION: Right lower limb pain. TECHNIQUE: Grayscale ultrasound images without and with compression and Doppler ultrasound images of the bilateral lower extremity veins were obtained. COMPARISON: None. FINDINGS: The visualized portions of right common femoral vein, profunda (deep) femoral vein, femoral vein, pop liteal vein, peroneal veins, posterior tibial veins, and greater saphenous vein outflow are patent. The visualized portions of left common femoral vein, profunda femoral vein, femoral vein, popliteal v ein, peroneal veins, posterior tibial veins, and greater saphenous vein outflow are patent. IMPRESSION: 1. No deep venous thrombosis. Reviewed, dictated and finalized at location A. LES POURER
--- OUTSIDE RECORDS SUMMARY | 2024-10-08 05:17 | XMS_ITS | Encounter Summary ---
Author Organization [facility] Address [address] [place] [address]. [place] [address] [place] [address] Care Team Providers Care Employee Relations Manager Name Role Phone Unavailable Primary Care Provider Unavailabl e Encounter Details Date Type Department Care Team (Late st Contact Info) Description 06/09/2006 Abstract [facility] [address] [place] [address] Celia Sherman MD [address] [facility] [address] [place] [address] Social History Tobacco Use Types Packs/Day Years Used Date Smoking Tobacco: Never Assessed Sex and Gender Information Value Date Recorded Sex Assigned at Not on file Legal Sex Male 7:38 PM CDT Gender Identity Not on file Sexual Orientation Not on file documented as of this encounter Plan of Treatment Not on file documented as of this encounter Visit Diagnoses Not on filedocumented in this encounter
--- OUTSIDE RECORDS SUMMARY | 2024-10-08 05:17 | XMS_ITS | Encounter Summary ---
Author Organization [facility] Address [address] [place] [address]. [place], [place] [address] [place] [address] Care Team Providers Care Manager City Name Role Phone Unavailable Primary Care Provider Unavailabl e Encounter Details Date Type Department Care Team (Late st Contact Info) Description 10/20/1993 Abstract [place] [address] , Generic Conversion, Social History Tobacco Use Types Packs/Day Years [...]
--- OUTSIDE RECORDS SUMMARY | 2024-10-08 05:17 | XMS_ITS | Encounter Summary ---
Author Organization [facility] Address [address] [place] [address]. [place] [address] [place] [address] Care Team Providers Care Web Administrator Name Role Phone Unavailable Primary Care Provider Unavailabl e Encounter Details Date Type Department Care Team (Late st Contact Info) Description 10/11/2007 Abstract [facility] [place] [address] Elva Guerra MD [address] [place] [address] Social History Tobacco Use Types Packs/Day Years [...]
--- OUTSIDE RECORDS SUMMARY | 2024-10-08 05:17 | XMS_ITS | Encounter Summary ---
Author Organization [facility] Address [address] [place] [address]. [place], [place] [address] [place] [address] Care Team Providers Care Cook 3 Pastry Name Role Phone Unavailable Primary Care Provider Unavailabl e Encounter Details Date Type Department Care Team (Late st Contact Info) Description 06/09/1996 [place] [address] , Generic Conversion, Social History Tobacco Use [...]
--- OUTSIDE RECORDS SUMMARY | 2024-10-08 05:17 | XMS_ITS | Encounter Summary ---
Author Organization [facility] Address [address] [place] [address]. [place] [address] [place] [address] Care Team Providers Care It Software Engineer Name Role Phone Unavailable Primary Care Provider Unavailabl e Encounter Details Date Type Department Care Team (Late st Contact Info) Description 11/26/2001 Abstract [facility] ONE [facility] [place] [address] Elva Guerra MD [address] [place] [address] Social History Tobacco Use Types Packs/Day Years [...]
--- OUTSIDE RECORDS SUMMARY | 2024-10-08 05:17 | XMS_ITS | Encounter Summary ---
Author Organization [facility] Address [address] [place] [address]. [place] [address] [place] [address] Care Team Providers Care Laundry Clerk Name Role Phone Unavailable Primary Care Provider Unavailabl e Encounter Details Date Type Department Care Team (Late st Contact Info) Description 06/07/[address] [facility] [place] [address] Elva Guerra MD [address] [place] [address] Social History Tobacco Use Types Packs/Day Years [...]
--- OUTSIDE RECORDS SUMMARY | 2024-10-08 05:17 | XMS_ITS | Encounter Summary ---
Author Organization [facility] Address [address] [place] [address]. [place] [address] [place] [address] Care Team Providers Care Certified Control Systems Technician Name Role Phone Unavailable Primary Care Provider Unavailabl e Encounter Details Date Type Department Care Team (Late st Contact Info) Description 07/16/2008 Abstract [facility] ONE [facility] [place] [address] Elva Guerra MD [address] [place] [address] Social History Tobacco Use Types Packs/Day Years [...]
--- OUTSIDE RECORDS SUMMARY | 2024-10-08 05:17 | XMS_ITS | Encounter Summary ---
Author Organization [facility] Address [address] [place] [address]. [place], [place] [address] [place] [address] Care Team Providers Care Clinical Operations Consultant Name Role Phone Unavailable Primary Care Provider Unavailabl e Encounter Details Date Type Department Care Team (Late st Contact Info) Description 04/23/1997 [place] [address] , Generic Conversion, Social History Tobacco Use [...]
--- OUTSIDE RECORDS SUMMARY | 2024-10-08 05:17 | XMS_ITS | Clinical Summary ---
Author Organization [facility] Address [address] [place] [address]. [place] [address] [place] [address] Care Team Providers Care Roof Promenade Tile Setter Name Role Phone Unavailable Primary Care Provider Unavailabl e Social History Tobacco Use Types Packs/Day Years Used Date Smoking Tobacco: Never Assessed Sex and Gender Information Value Date Recorded Sex Assigned at Not on file Legal Sex Male 7:38 PM CDT Gender Identity Not on file Sexual Orientation Not on file Plan of Treatment Health Maintenance Due Date Last Done Comments Annual Physical 1993 Hepatitis C 2008 DTaP, Tdap and Td Vaccines ( 1 - Tdap) 2009 Hepatitis B Vaccines (1 of 3 - 19+ 3-dose series) 2009 COVID-19 Vaccine (2023-2 5 season) 2024 Influenza Adult (#1) 2024 HPV Vaccines Aged Out No longer eligi ble based on patient's age to complete this topic Meningococcal Vaccine Aged Out No yvonne araceli eligible based on patient's age to complete this topic Pneumococcal Vaccine: Pediat rics (0 to 5 Years) and At-Risk Patients (6 to 64 Years) Aged Out No longer eligible b ased on patient's age to complete this topic RSV Immunizations Under 20 Months Aged Out No longer eligible based on patient's age to complete this topic
--- OUTSIDE RECORDS SUMMARY | 2024-10-08 05:17 | XMS_ITS | Encounter Summary ---
Author Organization [facility] Address [address] [place] [address]. [place], [place] [address] [place] [address] Care Team Providers Care Vocational Ed Instructor Name Role Phone Unavailable Primary Care Provider Unavailabl e Encounter Details Date Type Department Care Team (Late st Contact Info) Description 04/29/1995 [place] [address] , Generic Conversion, Social History Tobacco Use [...]
--- OUTSIDE RECORDS SUMMARY | 2024-10-08 05:17 | XMS_ITS | Encounter Summary ---
Author Organization [facility] Address [address] [place] [address]. [place] [address] [place] [address] Care Team Providers Care Sales Technician Name Role Phone Unavailable Primary Care Provider Unavailabl e Encounter Details Date Type Department Care Team (Late st Contact Info) Description 03/03/2000 [place] [address] Elva Guerra MD [address] [place] [address] Social History Tobacco Use Types Packs/Day Years [...]
--- OUTSIDE RECORDS SUMMARY | 2024-10-08 05:17 | XMS_ITS | Encounter Summary ---
Author Organization [facility] Address [address] [place] [address]. [place] [address] [place] [address] Care Team Providers Care Group Rooms Coordinator Name Role Phone Unavailable Primary Care Provider Unavailabl e Encounter Details Date Type Department Care Team (Late st Contact Info) Description 07/01/2002 Abstract [facility] [place] [address] Elva Guerra MD [address] [place] [address] Social History Tobacco Use Types Packs/Day Years [...]
--- OUTSIDE RECORDS SUMMARY | 2024-10-08 05:17 | XMS_ITS | Encounter Summary ---
Author Organization [facility] Address [address] [place] [address]. [place] [address] [place] [address] Care Team Providers Care Fan Engine Engineer Name Role Phone Unavailable Primary Care Provider Unavailabl e Encounter Details Date Type Department Care Team (Late st Contact Info) Description 11/14/2004 Abstract [facility] [address] [place] [address] Elva Guerra MD [address] [place] [address] Social History Tobacco Use Types Packs/Day Years [...]
--- OUTSIDE RECORDS SUMMARY | 2024-10-08 05:17 | XMS_ITS | Encounter Summary ---
Author Organization [facility] Address [address] [place] [address]. [place], [place] [address] [place] [address] Care Team Providers Care Tie Loader Name Role Phone Unavailable Primary Care Provider Unavailabl e Encounter Details Date Type Department Care Team (Late st Contact Info) Description 11/11/1995 Abstract [place] [address] , Generic Conversion, Social History Tobacco Use [...]
--- OUTSIDE RECORDS SUMMARY | 2024-10-08 05:17 | XMS_ITS | Encounter Summary ---
Author Organization [facility] Address [address] [place] [address]. [place] [address] [place] [address] Care Team Providers Care Games Dealer Name Role Phone Unavailable Primary Care Provider Unavailabl e Encounter Details Date Type Department Care Team (Late st Contact Info) Description 01/19/2000 Abstract [facility] ONE [facility] [place] [address] Elva Guerra MD [address] [place] [address] Social History Tobacco Use Types Packs/Day Years [...]
--- OUTSIDE RECORDS SUMMARY | 2024-10-08 05:17 | XMS_ITS | Encounter Summary ---
Author Organization [facility] Address [address] [place] [address]. [place], [place] [address] [place] [address] Care Team Providers Care Housing Assistant Property Manager Name Role Phone Unavailable Primary Care Provider Unavailabl e Encounter Details Date Type Department Care Team (Late st Contact Info) Description 08/29/2002 Emergency [facility] [place] [address] , Nilsa Bird MD Social History Tobacco Use Types Packs/Day Years [...]
== END 2024-10-01 07:42 | disposition home or self-care (01) ==
PROVIDERS: PCP Family Medicine; Visit Provider Physician Assistant Medical
DX: M79.604 Pain in right leg (principal)
CPT/HCPCS: 93970

== ENCOUNTER 2025-07-11 07:55 | Outpatient (CLI) | payer OTHER, SELFPAY ==
--- OUTSIDE RECORDS SUMMARY | 2025-07-11 07:59 | XMS_ITS | Clinical Summary ---
Author Organization [facility] Address [address] [place] [address] Care Team Providers Care Radio News Anchor Name Role Phone Unavailable Primary Care Provider [...] of 3 - 19+ 3-dose series) 2009 HPV Vaccines (1 - 3-dose SCD M series) 2017 COVID-19 Vaccine (1 - 2023-2 5 season) 2025 Influenza Adult (#1) 2025 Meningococcal B Vaccine Aged Out No l onger eligible based on patient's age to complete this topic Meningococcal Vaccine Aged Out No yvonne araceli eligible based on patient's age to complete this topic Pneumococcal Vaccine: Pediat rics (0 to 5 Years) and At-Risk Patients (6 to 49 Years) Aged Out No longer eligible b ased on patient's age to complete this topic RSV Immunizations Under 20 Months Aged Out No longer eligible based on patient's age to complete this topic
[2025-07-11 08:37] LABS: Hematocrit 42.5 % (42.0-52.0); Hemoglobin 14.6 g/dL (14.0-18.0); Immature Granulocyte Percent A 0.2 % (0-0.5); Lymphocytes Absolute Auto 1.97 K/mm3 (0.9-3.2); Mean Corpuscular HGB Conc 34.4 g/dl (32-36); Mean Corpuscular Hemoglobin 28.6 pg (26-34); Mean Corpuscular Volume 83.3 fl (80-100); Nucleated Red Blood Cells Absolute Auto 0.000 K/mm3 (0.0-0.012); Nucleated Red Blood Cells Perc 0.0 % (0.0-0.2); Platelet Count Result 291 k/mm3 (150-375); Red Blood Count 5.10 M/mm3 (4.6-6.20); White Blood Count 5.4 K/mm3 (4.5-10.0)
[2025-07-11 09:01] LABS: Alanine Aminotransferase 26 U/L (6-50); Albumin Level 4.5 g/dL (3.5-5.1); Alkaline Phosphatase 89 U/L (38-126); Amylase 80 U/L (30-110); Anion Gap 9 mmol/L (4-12); Aspartate Amino Transferase 28 U/L (17-59); Bilirubin,Total 0.6 mg/dL (0.2-1.3); Blood Urea Nitrogen 12 mg/dL (9-20); Calcium 9.6 mg/dL (8.4-10.2); Carbon Dioxide 30 mmol/L (22-30); Chloride 97 mmol/L (98-107); Cholesterol 219 mg/dL (0-200); Estimated Glomerular Filt Rate > 60; Glucose 95 mg/dL (65-110); HDL Direct 40 mg/dL; Lipase 83 U/L (23-300); Potassium 3.8 mmol/L (3.4-5.0); Sodium 136 mmol/L (137-145); Total Protein 8.0 g/dL (6.3-8.2); Triglycerides 91 mg/dL (<150)
[2025-07-11 09:44] LABS: Thyroid Stimulating Hormone 0.967 uIU/mL (0.465-4.680)
== END 2025-07-11 07:56 | disposition home or self-care (01) ==
LOC: ANHLAB 07:56
PROVIDERS: PCP Family Medicine; Visit Provider Family Medicine
DX: R10.11 Right upper quadrant pain (principal); Z13.220 Encounter for screening for lipoid disorders; E78.2 Mixed hyperlipidemia; I10 Essential (primary) hypertension; G40.909 Epilepsy, unspecified, not intractable, without status epilepticus
CPT/HCPCS: 36415; 80053; 80061; 82150; 82533; 83690; 84443; 85025

== ENCOUNTER 2025-08-29 12:56 | Outpatient (CLI) | payer OTHER, SELFPAY ==
--- NOTE | ~2025-08-29 | XR_ITS ---
EXAMINATION: XR knee LT 3V DATE: 08/29/2025 13:15 INDICATION: Pain TECHNIQUE: Left knee were obtained. COMPARISON: None. FINDINGS: No displaced fracture dislocation or aggressive bone lesion seen. No large effusion. No suspicious radiopaque foreign body seen. IMPRESSION: 1. No gross acute or aggressive bony or soft tissue process seen. Reviewed, dictated and finalized at location A. AL IMPLEMENTATION MANAGER
--- NOTE | ~2025-08-29 | XR_ITS ---
EXAMINATION: XR wrist RT min 3V, 08/29/2025 13:05 MOTION PICTURE NARRATOR HISTORY: M79.631 - Pain in right forearm and wrist COMPARISON: No comparisons available. Findings: No acute fracture or malalignment. No significant degenerative changes. Soft tissues unremarkable. Impression: No acute fracture or malalignment. Reviewed, dictated and finalized at location P. ON PICTURE NARRATOR Impression: No acute fracture or malalignment.
--- NOTE | ~2025-08-29 | XR_ITS ---
EXAMINATION: XR elbow RT 2V DATE: 08/29/2025 13:15 INDICATION: Chronic right forearm pain TECHNIQUE: Anteroposterior and lateral views of the right elbow were obtained. COMPARISON: None. FINDINGS: Alignment is normal. No fracture or joint effusion. 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 Soft tissues are unremarkable. No right elbow joint effusion. IMPRESSION: 1. 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 Reviewed, dictated and finalized at location A. F LIBRARIAN EXTENSION DEPARTMENT
--- OUTSIDE RECORDS SUMMARY | 2025-08-29 13:02 | XMS_ITS | Clinical Summary ---
Author Organization [facility] Address [address] [place] [address] Care Team Providers Care Dressmaker Helper Name Role Phone Unavailable Primary Care Provider [...] 3-dose SCD M series) 2017 COVID-19 Vaccine ( - 2024-2 6 season) 2025 Influenza Adult (#1) 2025 Hepatitis A Vaccines Aged Out No long er eligible based on patient's age to complete this topic Meningococcal B Vaccine Aged Out No l [...]
== END 2025-08-29 12:57 | disposition home or self-care (01) ==
PROVIDERS: PCP Family Medicine; Visit Provider Nurse Practitioner Adult Health
DX: M25.562 Pain in left knee (principal); M19.021 Primary osteoarthritis, right elbow
CPT/HCPCS: 73070; 73110; 73562